=== PATIENT | female | born 1990 | race Caucasian/White ===

== ENCOUNTER 2017-08-25 13:01 | Emergency (ER) | payer BC ==
[~2017-08-25] VITALS: Ht 170.2 cm; Wt 104.3 kg
--- NOTE | ~2017-08-25 | EKG ---
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
[~2017-08-25 13:01] MED LIST: ACETAMINOPHEN-1 EAC1 PO; AZITHROMYCIN 2250 MG PO; HYDROCODONE-AP1 EAC6 PO; IBUPROFEN 800800 M1 PO; NAPROSYN500 MG PO; NORFLEX100 MG PO; PREDNISONE 20 M20 MG PO; PREVACID30 M2 PO; PROTONIX40 M1 PO; PROVENTIL HFA6.7 G1 INH; TESSALON PERLE100 MG PO; ULTRAM 50MG TAB50 MG PO; VENTOLIN HFA 1818 GM INH; VENTOLIN17 GM INH; ZOFRAN ODT4 MG PO; ZOFRAN ODT8 MG PO
[2017-08-25 13:33] LABS: HEMATOCRIT 44.8 % (37.0-47.0); HEMOGLOBIN 14.8 gm/dL (12.0-15.0); MCH 28.3 pg (26.0-34.0); MCHC 33.1 g/dL (28.0-37.0); MCV 85.6 fL (80.0-100.0); RBC 5.24 mil/uL (4.20-5.00); RDW 13.6 % (10.5-14.5); WBC 11.7 thou/uL (4.0-11.0)
[2017-08-25 13:42] LABS: ANION GAP 5 mmol/L (7-16); BUN 11 mg/dL (7-18); CALCIUM 8.7 mg/dL (8.5-10.1); CHLORIDE 105 mmol/L (98-107); CO2 26 mmol/L (21-32); GLUCOSE 126 mg/dL (74-106); POTASSIUM 3.9 mmol/L (3.5-5.1); SODIUM 136 mmol/L (136-145)
[2017-08-25 13:50] LABS: TROPONIN-I < 0.04 ng/mL (<0.04-0.07)
[2017-08-25 14:50] VITALS: BP 125/66
== END 2017-08-25 14:50 | disposition home or self-care (01) ==
LOC: ER 13:01
PROVIDERS: Emergency Medicine
DX: R07.9 Chest pain, unspecified (principal); J45.909 Unspecified asthma, uncomplicated

== ENCOUNTER 2017-11-20 22:09 | Emergency (ER) | payer BC ==
[~2017-11-20] VITALS: Ht 170.2 cm; Wt 113.4 kg
--- NOTE | ~2017-11-20 | EKG ---
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: GLORIA : 1990 Requested By: Alexis Spivey Order Number: [id number] MD: Davon Lugo Measurements Intervals [place] Rate: 111 P: 62 [place]: 142 QRS: 64 QRSD: 100 T: 41 QT: 320 QTc: 435 Interpretive Statements Sinus tachycardia Early R-wave progression Compared to ECG 11/01/2017 19:46:06 Early R-wave progression is now present Electronically Signed On 11-22-2017 14:06:55 CONDITIONING COACH by Davon Lugo [email or web address] <ELECTRONICALLY SIGNED> By: Davon Lugo MD, [facility] 11/22/17 1406 18 18 Davon Lugo MD, [facility] /EPI
[~2017-11-20 22:09] MED LIST changes: +K-TAB10 MEQ PO; +MOBIC15 MG PO
[2017-11-20] MEDS ORDERED: TRAZODONE HCL100 MG PO (22:50)
[2017-11-20] MEDS ORDERED: RABEPRAZOLE SOD20 MG PO (22:51)
[2017-11-20] MEDS ORDERED: QVAR8.7 GM INH (22:51)
[2017-11-20] MEDS ORDERED: ETODOLAC 400 M400 M1 PO (22:51)
[2017-11-20] MEDS ORDERED: ALBUTEROL2.5 MG/31 INH (22:52)
[2017-11-20] MEDS ORDERED: SERTRALINE HCL100 MG PO (22:53)
[2017-11-20] MEDS ORDERED: PRAZOSIN HCL1 MG PO (22:53)
[2017-11-20] MEDS ORDERED: IBUPROFEN 400400 M2 PO (22:55)
[2017-11-20] MEDS ORDERED: MELATONIN1 MG/1 ML PO (22:55)
[2017-11-20] MEDS ORDERED: HYDROXYZINE HCL25 M1 PO (22:56)
[2017-11-21 00:10] LABS: ABSOLUTE NEUTROPHILS 12.4 thou/uL (1.4-8.2); BASOPHILS 0.3 % (0.0-2.0); EOSINOPHILS 0.4 % (0.0-3.0); HEMATOCRIT 42.2 % (37.0-47.0); HEMOGLOBIN 14.2 gm/dL (12.0-15.0); LYMPHOCYTES 12.9 % (24.0-44.0); MCH 28.4 pg (26.0-34.0); MCHC 33.7 g/dL (28.0-37.0); MCV 84.4 fL (80.0-100.0); MONOCYTES 9.5 % (1.0-8.0); PLATELET COUNT 196 thou/uL (150-400); POLYS 76.9 % (36.0-66.0); WBC 16.2 thou/uL (4.0-11.0)
[2017-11-21 00:21] LABS: ANION GAP 7 mmol/L (7-16); BUN 11 mg/dL (7-18); CALCIUM 9.4 mg/dL (8.5-10.1); CHLORIDE 102 mmol/L (98-107); CO2 30 mmol/L (21-32); CREATININE 1.2 mg/dL (0.6-1.0); GLUCOSE 104 mg/dL (74-106); POTASSIUM 3.7 mmol/L (3.5-5.1); SODIUM 139 mmol/L (136-145)
[2017-11-21 00:28] LABS: APTT 30.3 Seconds (24.5-32.8); D-DIMER 2.44 ug/mLFEU (0.19-0.50); PROTIME 10.3 Seconds (9.3-11.4)
[2017-11-21 00:30] LABS: ALBUMIN 3.6 g/dL (3.4-5.0); MAGNESIUM 2.4 mg/dL (1.8-2.4); SGOT 25 U/L (15-37); SGPT 33 U/L (30-65); TOTAL BILIRUBIN 0.3 mg/dL (<0.1-1.0); TOTAL PROTEIN 8.7 g/dL (6.4-8.2); TROPONIN-I < 0.04 ng/mL (<0.06)
[2017-11-21] MEDS ORDERED: NAPROSYN500 MG PO (02:07)
[2017-11-21] MEDS ORDERED: TRAMADOL 50 MG50 MG PO (02:07)
[2017-11-21] MEDS ORDERED: PRILOSEC 20 MG20 MG PO (02:08)
[2017-11-21 02:33] LABS: AMP/METHAMP Negative (Negative); BARBITURATES Negative (Negative); BENZODIAZEPINES Negative (Negative); COCAINE Negative (Negative); METHADONE Negative (Negative); OPIATES Negative (Negative); PCP Negative (Negative)
== END 2017-11-21 03:10 | disposition home or self-care (01) ==
LOC: ER 22:09
PROVIDERS: Emergency Medicine
DX: R07.89 Other chest pain (principal); E66.01 Morbid (severe) obesity due to excess calories; J45.909 Unspecified asthma, uncomplicated; F43.10 Post-traumatic stress disorder, unspecified; F32.9 Major depressive disorder, single episode, unspecified; F41.9 Anxiety disorder, unspecified; E11.9 Type 2 diabetes mellitus without complications; Z88.1 Allergy status to other antibiotic agents

== ENCOUNTER 2017-12-12 22:13 | Emergency (ER) | payer BC ==
[~2017-12-12] VITALS: Ht 170.2 cm; Wt 104.3 kg
[~2017-12-12 22:13] MED LIST changes: +ALBUTEROL2.5 MG/31 INH; +ETODOLAC 400 M400 M1 PO; +HYDROXYZINE HCL25 M1 PO; +IBUPROFEN 400400 M2 PO; +MELATONIN1 MG/1 ML PO; +PRAZOSIN HCL1 MG PO; +PRILOSEC 20 MG20 MG PO; +QVAR8.7 GM INH; +RABEPRAZOLE SOD20 MG PO; +SERTRALINE HCL100 MG PO; +TRAMADOL 50 MG50 MG PO; +TRAZODONE HCL100 MG PO
[2017-12-13] MEDS ORDERED: ANTIVERT25 MG PO ×2 (00:03→00:08)
[2017-12-13] MEDS ORDERED: NORFLEX100 MG PO ×2 (00:03→00:08)
[2017-12-13] MEDS ORDERED: NAPROSYN500 MG PO ×2 (00:03→00:08)
== END 2017-12-13 00:17 | disposition home or self-care (01) ==
LOC: ER 22:13
DX: R42 Dizziness and giddiness (principal); H81.13 Benign paroxysmal vertigo, bilateral; F43.10 Post-traumatic stress disorder, unspecified; F41.9 Anxiety disorder, unspecified; E11.9 Type 2 diabetes mellitus without complications; R07.89 Other chest pain; J45.909 Unspecified asthma, uncomplicated; M43.6 Torticollis; Z88.0 Allergy status to penicillin

== ENCOUNTER 2018-01-04 18:43 | Emergency (ER) | payer BC ==
[~2018-01-04] VITALS: Ht 170.2 cm; Wt 113.4 kg
[~2018-01-04 18:43] MED LIST changes: +ANTIVERT25 MG PO
[2018-01-04 19:29] LABS: ABSOLUTE NEUTROPHILS 5.5 thou/uL (1.4-8.2); BASOPHILS 0.6 % (0.0-2.0); EOSINOPHILS 2.6 % (0.0-3.0); HEMATOCRIT 41.1 % (37.0-47.0); LYMPHOCYTES 28.9 % (24.0-44.0); MCH 28.5 pg (26.0-34.0); MCV 83.9 fL (80.0-100.0); MONOCYTES 6.3 % (1.0-8.0); PLATELET COUNT 213 thou/uL (150-400); POLYS 61.6 % (36.0-66.0); RDW 13.2 % (10.5-14.5)
[2018-01-04 19:36] LABS: CALCIUM 8.7 mg/dL (8.5-10.1); POTASSIUM 3.5 mmol/L (3.5-5.1)
[2018-01-04 19:42] LABS: ALBUMIN 3.4 g/dL (3.4-5.0); TOTAL BILIRUBIN 0.4 mg/dL (<0.1-1.0)
[2018-01-04 19:56] LABS: ICTOTEST (BILI CONFIRMATORY) Negative (Negative); URINE BILIRUBIN NEGATIVE (Negative); URINE BLOOD NEGATIVE (Negative); URINE CLARITY CLEAR; URINE COLOR YELLOW; URINE GLUCOSE-RANDOM* NEGATIVE (Negative); URINE KETONES NEGATIVE (Negative); URINE LEUKOCYTES NEGATIVE (Negative); URINE NITRITE NEGATIVE (Negative); URINE PROTEIN (DIPSTICK) NEGATIVE (Negative); URINE SPECIFIC GRAVITY >= 1.030 (1.005-1.035); URINE UROBILINOGEN 0.2 E.U./dl (0.2-1.0)
== END 2018-01-04 20:28 | disposition home or self-care (01) ==
LOC: ER 18:43
PROVIDERS: Physician Assistant
DX: R10.13 Epigastric pain (principal); R19.7 Diarrhea, unspecified; J45.909 Unspecified asthma, uncomplicated; F41.9 Anxiety disorder, unspecified; G40.909 Epilepsy, unspecified, not intractable, without status epilepticus; E11.9 Type 2 diabetes mellitus without complications; Z88.1 Allergy status to other antibiotic agents

== ENCOUNTER 2018-01-19 06:58 | Emergency (ER) | payer BC ==
[~2018-01-19] VITALS: Ht 170.2 cm; Wt 113.4 kg
--- NOTE | ~2018-01-19 | EKG ---
[address] [address] ELECTROCARDIOGRAM REPORT Name: NARESH SMITH Room #: DEP [facility]#: [id number] Admission: 01/19/18 Attend Phys: Discharge: 01/19/18 Date of : [birth year] Report #: [id number] THIS REPORT FOR: //name// [facility] ED Test Date: 2018-01-19 Test Time: 07:15:30 Pat Name: NARESH SMITH Department: Room: Gender: F Market Analyst: Ruben BURNS : 1990 Requested By: Yvonne Pepe Order Number: [id number] MD: Marcio León Measurements Intervals [place] Rate: 116 P: 54 DE: 140 QRS: 51 QRSD: 90 T: 33 QT: 318 QTc: 442 Interpretive Statements Sinus tachycardia Compared to ECG 11/20/2017 22:19:50 No significant changes Electronically Signed On 01-19-2018 19:21:31 LOGISTICS ANALYTICS MANAGER by Marcio León [email or web address] <ELECTRONICALLY SIGNED> By: Marcio León MD 01/19/18 1921 0715 4 Marcio León MD /KIKE
[2018-01-19 07:37] LABS: ABSOLUTE NEUTROPHILS 13.9 thou/uL (1.4-8.2); BASOPHILS 0.3 % (0.0-2.0); HEMATOCRIT 43.7 % (37.0-47.0); HEMOGLOBIN 14.6 gm/dL (12.0-15.0); LYMPHOCYTES 5.8 % (24.0-44.0); MCHC 33.4 g/dL (28.0-37.0); MCV 83.9 fL (80.0-100.0); MONOCYTES 7.3 % (1.0-8.0); PLATELET COUNT 210 thou/uL (150-400); POLYS 86.6 % (36.0-66.0); RDW 13.7 % (10.5-14.5)
[2018-01-19 07:38] LABS: URINE BILIRUBIN NEGATIVE (Negative); URINE BLOOD 3+ (Negative); URINE CLARITY CLEAR; URINE COLOR YELLOW; URINE GLUCOSE-RANDOM* NEGATIVE (Negative); URINE KETONES NEGATIVE (Negative); URINE LEUKOCYTES 3+ (Negative); URINE NITRITE NEGATIVE (Negative); URINE PROTEIN (DIPSTICK) NEGATIVE (Negative)
[2018-01-19 07:43] LABS: CALCIUM 8.6 mg/dL (8.5-10.1)
[2018-01-19 07:45] LABS: CASTS None Seen /LPF (None Seen); MUCUS 4-6 Moderate strn/LPF (None Seen); SQUAMOUS 4-10 Moderate /LPF (0-3)
[2018-01-19 07:47] LABS: BACTERIA >30 Many /HPF (None Seen); CRYSTALS None Seen /LPF (None Seen); URINE RBC 0-2 Rare /HPF (0-2); URINE WBC 0-5 Rare /HPF (0-5)
[2018-01-19 07:49] LABS: ALBUMIN 3.4 g/dL (3.4-5.0); DIRECT BILIRUBIN 0.1 mg/dL (<0.1-0.3); TOTAL BILIRUBIN 0.6 mg/dL (<0.1-1.0); TOTAL PROTEIN 8.3 g/dL (6.4-8.2)
[2018-01-19] MEDS ORDERED: ZOFRAN ODT4 MG PO (08:57)
[2018-01-19] MEDS ORDERED: PHENERGAN 25 MG25 M1 PO (08:57)
[2018-01-19] MEDS ORDERED: KEFLEX500 M1 PO (08:57)
== END 2018-01-19 10:00 | disposition home or self-care (01) ==
LOC: ER 06:58
PROVIDERS: Emergency Medicine
DX: R19.7 Diarrhea, unspecified (principal); R11.2 Nausea with vomiting, unspecified; R07.89 Other chest pain; N39.0 Urinary tract infection, site not specified; R00.0 Tachycardia, unspecified; J45.909 Unspecified asthma, uncomplicated; G40.909 Epilepsy, unspecified, not intractable, without status epilepticus; E11.9 Type 2 diabetes mellitus without complications

== ENCOUNTER 2018-02-21 22:06 | Emergency (ER) | payer OTHER ==
[~2018-02-21] VITALS: Ht 170.2 cm; Wt 113.4 kg
--- NOTE | ~2018-02-21 | EKG ---
[address] [place] [address] ELECTROCARDIOGRAM REPORT Name: NARESH SMITH Room #: DEP 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
[~2018-02-21 22:06] MED LIST changes: +KEFLEX500 M1 PO; +PHENERGAN 25 MG25 M1 PO
[2018-02-21 22:39] LABS: ABSOLUTE NEUTROPHILS 7.4 thou/uL (1.4-8.2); BASOPHILS 0.5 % (0.0-2.0); EOSINOPHILS 1.3 % (0.0-3.0); HEMATOCRIT 41.2 % (37.0-47.0); HEMOGLOBIN 13.7 gm/dL (12.0-15.0); LYMPHOCYTES 23.9 % (24.0-44.0); MCH 28.2 pg (26.0-34.0); MCHC 33.2 g/dL (28.0-37.0); MCV 84.8 fL (80.0-100.0); MONOCYTES 9.9 % (1.0-8.0); PLATELET COUNT 212 thou/uL (150-400); POLYS 64.4 % (36.0-66.0); RBC 4.86 mil/uL (4.20-5.00); RDW 13.6 % (10.5-14.5); WBC 11.5 thou/uL (4.0-11.0)
[2018-02-21 22:48] LABS: ANION GAP 7 mmol/L (7-16); BUN 13 mg/dL (7-18); CALCIUM 8.9 mg/dL (8.5-10.1); CHLORIDE 105 mmol/L (98-107); CO2 30 mmol/L (21-32); CREATININE 0.9 mg/dL (0.6-1.0); GLUCOSE 84 mg/dL (74-106); POTASSIUM 3.9 mmol/L (3.5-5.1); SODIUM 142 mmol/L (136-145)
[2018-02-21 22:54] LABS: TROPONIN-I < 0.04 ng/mL (<0.06)
[2018-02-21] MEDS ORDERED: MOBIC15 MG PO (23:20)
[2018-02-21 23:31] VITALS: BP 104/58
== END 2018-02-21 23:33 | disposition home or self-care (01) ==
LOC: ER 22:06
PROVIDERS: Emergency Medicine
DX: R07.89 Other chest pain (principal); J45.909 Unspecified asthma, uncomplicated; F41.9 Anxiety disorder, unspecified; E11.9 Type 2 diabetes mellitus without complications; F32.9 Major depressive disorder, single episode, unspecified; G40.909 Epilepsy, unspecified, not intractable, without status epilepticus; Z88.1 Allergy status to other antibiotic agents

== ENCOUNTER 2018-03-03 22:19 | Emergency (ER) | payer OTHER ==
[~2018-03-03] VITALS: Ht 170.2 cm; Wt 127.0 kg
--- NOTE | ~2018-03-03 | EKG ---
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: GLORIA : 1990 Requested By: Leobardo Mata Order Number: [id number] MD: Davon Lugo Measurements Intervals [place] Rate: 101 P: 52 [place]: 161 QRS: 67 QRSD: 88 T: 44 QT: 346 QTc: 449 Interpretive Statements Sinus tachycardia Otherwise no significant abnormality Compared to ECG 02/21/2018 22:14:46 no significant change was found Electronically Signed On 03-04-2018 8:35:27 CDT by Davon Lugo [email or web address] <ELECTRONICALLY SIGNED> By: Davon Lugo MD, [facility] 03/04/18 0835 25 25 Davon Lugo MD, [facility] /EPI
--- NOTE | ~2018-03-03 | EKG ---
[address] [address] [employer] [address] ELECTROCARDIOGRAM REPORT Name: NARESH SMITH Room #: DEP [facility]#: [id number] Admission: 03/03/18 Attend Phys: Discharge: 03/04/18 Date of : [birth year] Report #: [id number] THIS REPORT FOR: //name// [facility] ED Test Date: 2018-03-04 Test Time: 00:10:24 Pat Name: NARESH SMITH Department: Room: Gender: F Compensation Administrator: [id number] : 1990 Requested By: Leobardo Mata Order Number: [id number] MD: Davon Lugo Measurements Intervals [place] Rate: 94 P: 45 DE: 163 QRS: 62 QRSD: 89 T: 44 QT: 357 QTc: 447 Interpretive Statements Sinus rhythm Early R-wave progression Compared to ECG 02/21/2018 22:14:46 No significant changes Electronically Signed On 03-04-2018 8:35:58 CDT by Davon Lugo [email or web address] <ELECTRONICALLY SIGNED> By: Davon Lugo MD, [facility] 03/04/18 0835 0010 0010 Davon Lugo MD, [facility] /EPI
[2018-03-03 23:08] LABS: ABSOLUTE NEUTROPHILS 8.8 thou/uL (1.4-8.2); BASOPHILS 0.4 % (0.0-2.0); EOSINOPHILS 0.9 % (0.0-3.0); HEMATOCRIT 42.5 % (37.0-47.0); HEMOGLOBIN 13.9 gm/dL (12.0-15.0); MCH 27.6 pg (26.0-34.0); MCHC 32.6 g/dL (28.0-37.0); MCV 84.5 fL (80.0-100.0); MONOCYTES 4.7 % (1.0-8.0); PLATELET COUNT 208 thou/uL (150-400); RBC 5.03 mil/uL (4.20-5.00); RDW 13.6 % (10.5-14.5); WBC 12.6 thou/uL (4.0-11.0)
[2018-03-03 23:12] LABS: CALCIUM 8.8 mg/dL (8.5-10.1); POTASSIUM 3.6 mmol/L (3.5-5.1)
[2018-03-03 23:21] LABS: ALBUMIN 3.5 g/dL (3.4-5.0); TOTAL BILIRUBIN 0.2 mg/dL (<0.1-1.0); TOTAL PROTEIN 8.2 g/dL (6.4-8.2); TROPONIN-I 0.09 ng/mL (<0.06)
[2018-03-04 00:47] VITALS: BP 123/90
== END 2018-03-04 00:49 | disposition home or self-care (01) ==
LOC: ER 22:19
PROVIDERS: Emergency Medicine
DX: R07.9 Chest pain, unspecified (principal); J45.909 Unspecified asthma, uncomplicated; G40.909 Epilepsy, unspecified, not intractable, without status epilepticus; E11.9 Type 2 diabetes mellitus without complications; Z88.1 Allergy status to other antibiotic agents